=== PATIENT | female | born 1990 | race Caucasian/White ===

== ENCOUNTER 2020-11-25 10:10 | Emergency (ER) | payer OTHER ==
[~2020-11-25 10:10] MED LIST: BENTYL 20MG TAB20 MG PO; BUTALB-ACETAMI1 EACH PO; REGLAN10 MG PO
[2020-11-25 11:56] LABS: HEMOGLOBIN 11.1 gm/dl (12.3-15.3); RED BLOOD COUNT 4.46 M/UL (4.00-5.10)
[2020-11-25 12:21] LABS: BUN/CREATININE RATIO 14 (0-10)
== END 2020-11-25 14:08 | disposition home or self-care (01) ==
LOC: ER1 10:10
PROVIDERS: Nurse Practitioner
DX: D25.9 Leiomyoma of uterus, unspecified (principal); Z79.899 Other long term (current) drug therapy; Z88.1 Allergy status to other antibiotic agents; Z88.0 Allergy status to penicillin; Z88.2 Allergy status to sulfonamides; Z88.8 Allergy status to other drugs, medicaments and biological substances
CPT/HCPCS: 36415; 76830; 80053; 84703; 85025; 96372; 99284; J1885